=== PATIENT | male | born 1990 | race Caucasian/White ===

== ENCOUNTER 2023-10-20 18:57 | Emergency (ER) | payer BC, SELFPAY ==
[2023-10-20] VITALS (7 sets, daily range): BP systolic 98–123; BP diastolic 51–74; PULSE 58–68; RESP 18–20; TEMP 36.8; O2SAT 95–99; BMI 29.4
[2023-10-20 19:48] LABS: Basophils Percent Auto 0.3 % (0.0-3.0); Hematocrit 42.5 % (37.0-53.0); Hemoglobin* 14.6 gm/dL (13.5-17.5); Immature Granulocytes Pct Auto 0.8 %; Lymphocytes Percent Auto 31.2 % (20-44); Mean Corpuscular HGB Conc 34 gm/dL (32-36); Mean Corpuscular Hemoglobin 28 pg (26-34); Mean Corpuscular Volume 81 fL (80-100); Monocytes Percent Auto 6.9 % (0.0-11.0); Neutrophils Percent Auto 59.8 % (42.0-72.0); Platelet Count* 365 K/uL (140-440); RDW Coefficient of Variation % 12.9 % (11.5-15.5); Red Blood Count 5.28 m/uL (4.30-5.90); White Blood Count* 11.47 K/uL (4.50-11.00)
--- NOTE | 2023-10-20 20:07 | CRLHL7_ITS ---
For Patients: As a result of the Century Cures Act, medical imaging exams and procedure reports are released immediately into your electronic medical record. You may view this report before your referring provider. If you have questions, please contact your health care provider. INDICATION: Headache. Trauma. TECHNIQUE: Non-contrast CT of the head is submitted. No comparisons. FINDINGS: The ventricles, sulci and gyri are of normal size, shape and contour. Midline structures are centrally located. No convincing evidence of intra- or extra-axial fluid collections. IMPRESSION: 1. No radiographic evidence of acute intracranial abnormalities. Please note that all CT scans at this facility use dose modulation, iterative reconstruction, and/or weight-based dosing when appropriate to reduce radiation dose to as low as reasonably achievable. Dictated by Mario Arias MD @ 10/20/2023 9:01:08 PM (Electronically Signed)
[2023-10-20] MEDS: 0.9 % SODIUM CHLORIDE 1000 ml 1,000 ML IV (20:09)
--- NOTE | 2023-10-20 20:23 | ED.GENADULT ---
HPI - General Adult General Date Seen: 10/20/23 Chief complaint: Syncope/Fainted Stated complaint: Syncope, hit head Time Seen by Provider: 10/20/23 19:16 Source: patient and family Mode of arrival: ambulatory Limitations: no limitations History of Present Illness HPI narrative: Patient is a 32-year-old male, here with his and friend, describes himself as generally healthy, he had a syncopal episode just a bit ago outside of a bar. Does admit to a few drinks as well as some marijuana. He says he has had spells like this a number of times over the years, for probably about a decade, though he is usually not unconscious. He denies any history of exertional syncope. Sometimes it is when he is drinking but more usually it has been when he is not drinking. He notes that often getting out of a hot shower into colder air has often been the precipitating factor. He says his legs will feel suddenly weak, like rubber, and he will know that he is going to go down. He says he usually lays there for a little while and eventually is able to get himself up and going again. Tonight, he had his head and thinks that is why he had loss of consciousness. There was no postictal period. There was no seizure-like activity described today. He says he passed out, hit his head, then tried to stand up and thinks he passed out again. He is worried about a possible concussion. Does have a little bit of headache but denies any external head trauma. He is not anticoagulated. He has not had any vomiting. He does not smoke, he uses marijuana fairly regularly but he says not daily. He drinks maybe once a week. Denies other drug history. He has never had these spells evaluated. He says that if he is laying or sitting when 1 of these episodes starts he can generally ride it out. Tends to have problems only when he is standing. Related Data Home Medications ?Medication ?Instructions ?Recorded ?Confirmed No Known Home Medications 10/20/23 10/20/23 Allergies Allergy/AdvReac Type Severity Reaction Status Date / Time No Known Drug Allergies Allergy Verified 10/20/23 19:07 Review of Systems Status of ROS: Reports: 10 or more systems reviewed and unremarkable except as noted in History and below PFSH PFS Social History Smoking Status: Never smoker Exam Narrative: Exam Narrative: Vital signs as noted above. In general, an alert, nontoxic male, he looks somewhat pale and somewhat fatigued. Breathing easily. Head: Normocephalic, atraumatic. Eyes: Pupils are equal reactive. Extraocular movements are full. Conjunctivae are normal. ENT: Mucous membranes are moist. Throat is normal. Neck: Supple without lymphadenopathy. Heart: Regular rate and rhythm. No murmur or rub. Lungs: Clear bilaterally. No increased work of breathing, crackles or wheezes. Abdomen: Soft and nontender. No organomegaly. Extremities: Well perfused. No edema. No calf tenderness. Pulses intact. Neurologic: Patient is alert and oriented to person and place. Speech is fluent. Face is symmetric. Moves all extremities equally. Strength is 5 of 5 in upper and lower extremities, I did test reflexes although this was after he had been here for couple of hours. These were normal throughout. Affect: Normal. Skin: Warm and dry. Well perfused. Const: Vital Signs, click to edit/add: Vital Signs - 24 hr 10/20/23 21:33 10/20/23 21:34 Temperature 98.2 F 98.2 F Pulse Rate [Right Pulse Oximeter] 64 64 Respiratory Rate 20 20 Blood Pressure [Ri ght Upper Arm] 110/74 110/74 Pulse Oximetry 99 Oxygen Delivery Me thod Room Air Course Course ED Course: EKG done on arrival shows a mild sinus bradycardia, ventricular rate of 59 beats per minute. He has an S-wave in lead 1 an inverted T-wave in lead 3 but no Q-wave. Corrected QT is 473 milliseconds. He does have an incomplete bundle branch block, but I do not see any ST elevation in the anterior leads suggestive of Brugada syndrome. He has a normal VA at 162 milliseconds. We did orthostatics here, by numbers not terribly impressive but he was symptomatic with standing up. I have ordered a CT scan given his concern about hitting his head and then recurrent loss of consciousness. A troponin is 0, CBC and metabolic panel as well as a blood alcohol are pending. CT of the head by my review was negative. Negative per radiology read. White count minimally elevated at 11.5, hemoglobin of 14.6. His metabolic panel was notable primarily for potassium of 2.8. Sodium was normal, CO2 was 20, anion gap was 16, blood sugar 134. Blood alcohol was 0.03. I discussed his care with Neurology, because of consideration for hypokalemic periodic paralysis. I spoke with Dr. Caballero and she did feel would be reasonable to have him follow up with Neurology for further evaluation. She recommended some potassium replacement, but felt it was reasonable to let him go home if he was feeling better. He does feel considerably better now and thinks he will be able to walk without difficulty. I gave him potassium 40 mEq orally. I would hold off on replacement, if this does represent hypokalemic periodic paralysis he is not really total body hypokalemic and I have some concerns about hyperkalemia in that setting. I have asked him to make follow-up appointment with neurology and would also have him make a follow-up appointment in clinic here next week to have his potassium rechecked. Vital Signs Vital signs: Initial Vital Signs Temperature 98.2 F 10/20/23 19:04 Temperature Source Temporal Artery Scan 10/20/23 19:04 Pulse Rate 68 10/20/23 19:04 Pulse Rhythm Regular 10/20/23 19:04 Pulse Strength 3+ Normal 10/20/23 19:04 Respiratory Rate 18 10/20/23 19:04 Blood Pressure 98/51 L 10/20/23 19:04 Blood Pressure Mean 66 L 10/20/23 19:04 Blood Pressure Position Supine 10/20/23 19:04 Pulse Oximetry 99 10/20/23 19:04 Oxygen Delivery Method Room Air 10/20/23 19:04 Vital Signs Temperature 98.2 F 10/20/23 19:04 Pulse Rate 68 10/20/23 19:04 Respiratory Rate 18 10/20/23 19:04 Blood Pressure 98/51 L 10/20/23 19:04 Pulse Oximetry 99 10/20/23 19:04 Oxygen Delivery Method Room Air 10/20/23 19:04 Temperature 98.2 F 10/20/23 21:34 Pulse Rate 64 10/20/23 21:34 Respiratory Rate 20 10/20/23 21:34 Blood Pressure 110/74 10/20/23 21:34 Pulse Oximetry 99 10/20/23 21:33 Oxygen Delivery Method Room Air 10/20/23 21:33 Medications Administered Medications: Discontinued Medications Generic Name Dose Route Start Last Admin Trade Name Jf PRN Reason Stop Dose Admin Sodium Chloride 1,000 mls @ 1,000 mls/hr 10/20/23 20:15 10/20/23 20:52 0.9 % Sodium Chloride 1000 Ml IV 10/20/23 21:14 Infused .Q1H KILLIAN Infusion Potassium Chloride 40 meq 10/20/23 21:15 10/20/23 21:20 Potassium Chloride 10 Meq Capsule Er PO 10/20/23 21:16 40 meq ONCE ONE Administration Medical Decision Making Lab Data Labs: Lab Results 10/20/23 Range/Units 19:28 WBC 11.47 H (4.50-11.00) K/uL RBC 5.28 (4.30-5.90) m/uL Hgb 14.6 (13.5-17.5) gm/dL Hct 42.5 (37.0-53.0) % MCV 81 (80-100) fL MCH 28 (26-34) pg MCHC 34 (32-36) gm/dL RDW Coeff of Wang 12.9 (11.5-15.5) % Plt Count 365 (140-440) K/uL Neut % (Auto) 59.8 (42.0-72.0) % Lymph % (Auto) 31.2 (20-44) % [place] % (Auto) 6.9 (0.0-11.0) % Eos % (Auto) 1.0 (0.0-7.0) % Baso % (Auto) 0.3 (0.0-3.0) % Neut # (Auto) 6.90 (1.7-7.0) K/uL Lymph # (Auto) 3.60 H (0.90-2.90) K/uL [place] # (Auto) 0.80 (0.00-0.90) K/UL Eos # (Auto) 0.10 (0.00-0.50) K/uL Baso # (Auto) 0.00 (0.00-0.30) K/uL Abs Immat Gran (auto) 0.10 (0.00-0.30) K/uL Imm/Tot Granulo (auto) 0.8 % Sodium 139 (135-149) mmol/L Potassium 2.8 L* (3.6-5.1) mmol/L Chloride 103 (96-114) mmol/L Carbon Dioxide 20 (20-32) mmol/L Anion Gap 16 H (7-15) mEq/L BUN 24 (5-24) mg/dL Creatinine 1.2 (0.5-1.5) mg/dL Estimated Creat Clear 107.58 Estimated GFR 83 ml/min Glucose 134 H (60-115) mg/dL Calcium 9.2 (8.4-10.6) mg/dL Ethyl Alcohol 0.03 (0.01-0.03) % POC Troponin I 0.00 L (0.01-0.04) ng/ml Discharge Plan Discharge Clinical Impression: Syncope, Hypokalemia Patient Disposition: Home, Self-Care Condition: Improved Instructions: Hypokalemia (ED), Syncope (ED) Additional Instructions: Please make 2 follow-up appointments. One with our clinic here, at [phone], to have your potassium rechecked and follow-up with primary care next week. Also please make an appointment with [facility], , for further consideration of hypokalemic periodic paralysis. You can tell the clinic that the ER doctor spoke with the on-call neurologist, Dr. Caballero, who wanted you to follow-up with the neurology clinic. Prescriptions: No Action No Known Home Medications Follow Up/Referrals: Provider,Not a Local [Primary Care Provider] - Stand Alone Forms: [facility] Info Instructions
[2023-10-20 20:36] LABS: Slide Review Reflex No
[2023-10-20 20:37] LABS: Chloride* 103 mmol/L (96-114); Sodium* 139 mmol/L (135-149)
[2023-10-20 20:40] LABS: Anion Gap 16 mEq/L (7-15); Blood Urea Nitrogen* 24 mg/dL (5-24); Carbon Dioxide* 20 mmol/L (20-32); Creatinine* 1.2 mg/dL (0.5-1.5); Est. Creatinine Clearance* 107.58; Estimated Glomerular Filt Rate 83 ml/min; Ethanol* 0.03 % (0.01-0.03); Glucose* 134 mg/dL (60-115)
[2023-10-20 20:41] LABS: Calcium* 9.2 mg/dL (8.4-10.6)
[2023-10-20 20:42] LABS: Potassium* 2.8 mmol/L (3.6-5.1)
--- NOTE | 2023-10-20 20:43 | PC.NURSE ---
Lab called with critical lab value, Potassium 2.8.
[2023-10-20] MEDS: POTASSIUM CHLORIDE 10 MEQ CAPSULE ER 40 MEQ PO (21:20)
== END 2023-10-20 21:35 | disposition home or self-care (01) ==
PROVIDERS: Emergency Provider Emergency Medicine
DX: R55 Syncope and collapse (principal); E87.6 Hypokalemia
CPT/HCPCS: 36415; 70450; 80048; 82077; 84484; 85025; 93005; 94761; 99283; 99284; A9270; J7030